=== PATIENT | female | born 1955 | race Hispanic/Latino ===

== ENCOUNTER 2020-05-26 15:06 | Emergency (ER) | payer MEDICARE ==
--- NOTE | 2020-05-26 17:47 | Event Note ---
ED Screening Note Date of service: 05/26/20 Time: 17:46 ED Screening Note: 65-year-old female presents to the emergency room for shortness of breath. Patient was sent from [facility] for low blood pressure. Per EMS patient was satting at 88% on room air and was placed on supplemental oxygen at 3 L. This initial assessment/diagnostic orders/clinical plan/treatment(s) is/are subject to change based on patients health status, clinical progression and re- assessment by fellow clinical providers in the ED. Further treatment and workup at subsequent clinical providers discretion. Patient/guardian urged not to elope from the ED as their condition may be serious if not clinically assessed and managed. Initial orders include:
--- NOTE | 2020-05-26 18:29 | XRay Report ---
CHEST 2 VIEWS INDICATION: sob. COMPARISON: 12/08/2019 FINDINGS: Support devices: None. Heart: Within normal limits. Lungs: Chronic pulmonary changes are present. Lung volume is increased Pleura: No significant pleural effusion. No pneumothorax. Additional findings: None. IMPRESSION: 1. No acute findings. COPD Signer Name: Elie Diana MD Signed: 05/26/2020 6:25 PM Workstation Name: [id number]
[2020-05-26] MEDS ORDERED: LORazepam 1 MG TAB PO ONE (19:09)
[2020-05-26] MEDS ORDERED: ALBUTEROL 2.5 MG/3 ML NEBU IH ONE (20:37)
[2020-05-26] MEDS ORDERED: predniSONE 20 MG TAB PO ONE (20:42)
--- NOTE | 2020-05-26 20:48 | Emergency Department Report ---
ED Shortness of Breath HPI - General Chief Complaint: Dyspnea/Respdistress Stated Complaint: SCHIZO EFFECTIVE/DEHYDRATION Source: EMS Mode of arrival: Stretcher Limitations: No Limitations - History of Present Illness Initial Comments: 65-year-old female presents to the emergency room for shortness of breath and anxiety. It was reported by EMS that patient was satting at 88% on room air. Patient has a history of COPD and mental health issues. Patient is currently residing at [facility]. Patient denies any fever chills no nausea no vomiting. Patient reports that she is on oxygen at home. MD Complaint: shortness of breath, anxiety -: This afternoon Severity: moderate Consistency: constant Improves With: oxygen Worsens With: movement Known History Of: COPD Treatments Prior to Arrival: oxygen - Related Data Home Medications Medication Instructions Recorded Confirmed Last Taken Benztropine Mesylate 0.5 mg PO BID 12/09/19 12/09/19 Unknown Ipratropium (Nf) [Atrovent HFA 1 puff 12/09/19 Unknown 17MCG/PUFF] LORazepam [Lorazepam] 1 mg PO BID 12/09/19 12/09/19 Unknown [place] Carbonate [Eskalith] 300 mg PO QHS 12/09/19 12/09/19 Unknown Primidone [Mysoline] 50 mg PO QDAY 12/09/19 12/09/19 Unknown Quetiapine Fumarate [SEROquel] 300 mg PO BID 12/09/19 12/09/19 Unknown Trazodone HCl 100 mg PO QHS 12/09/19 12/09/19 Unknown Valacyclovir HCl [Valacyclovir] 500 mg QAM 12/09/19 12/09/19 Unknown donepeziL [Aricept] 10 mg QAM 12/09/19 12/09/19 Unknown Previous Rx's Medication Instructions Recorded Last Taken Type Albuterol Sulfate [Proventil Hfa] 6.7 gm IH TID PRN #1 hfa.aer.ad 05/26/20 Unknown Rx Prednisone [predniSONE 5 mg (6-Day 5 mg PO .TAPER #1 tab.ds.pk 05/26/20 Unknown Rx Pack, 21 Tabs)] Allergies Allergy/AdvReac Type Severity Reaction Status Date / Time Penicillins Allergy Vomiting Verified 04/17/14 18:03 Sulfa (Sulfonamide Allergy Unknown Verified 04/17/14 18:03 Antibiotics) ED Review of Systems ROS: Stated complaint: SCHIZO EFFECTIVE/DEHYDRATION Other details as noted in HPI Comment: All other systems reviewed and negative ED Past Medical Hx - Past Medical History Hx Arthritis: Yes (Osteopenia) Hx Psychiatric Treatment: Yes (Bipolar, EPS, Anxiety, Hx addiction depression) Hx COPD: Yes Additional medical history: Alzhimer's. Von willmer's - Surgical History Additional Surgical History: partial gastrectomy (due to bleeding ulcer) - Social History Smoking Status: Unknown if ever smoked - Medications Home Medications: Home Medications Medication Instructions Recorded Confirmed Last Taken Type Benztropine Mesylate 0.5 mg PO BID 12/09/19 12/09/19 Unknown History Ipratropium (Nf) [Atrovent HFA 1 puff 12/09/19 Unknown History 17MCG/PUFF] LORazepam [Lorazepam] 1 mg PO BID 12/09/19 12/09/19 Unknown History [place] Carbonate [Eskalith] 300 mg PO QHS 12/09/19 12/09/19 Unknown History Primidone [Mysoline] 50 mg PO QDAY 12/09/19 12/09/19 Unknown History Quetiapine Fumarate [SEROquel] 300 mg PO BID 12/09/19 12/09/19 Unknown History Trazodone HCl 100 mg PO QHS 12/09/19 12/09/19 Unknown History Valacyclovir HCl [Valacyclovir] 500 mg QAM 12/09/19 12/09/19 Unknown History donepeziL [Aricept] 10 mg QAM 12/09/19 12/09/19 Unknown History Albuterol Sulfate [Proventil Hfa] 6.7 gm IH TID PRN #1 hfa.aer.ad 05/26/20 Unkn own Rx Prednisone [predniSONE 5 mg (6-Day 5 mg PO .TAPER #1 tab.ds.pk 05/26/20 Unknown Rx Pack, 21 Tabs)] ED Physical Exam - General Limitations: No Limitations General appearance: alert, in no apparent distress - Head Head exam: Present: atraumatic, normocephalic - Eye Eye exam: Present: normal appearance - ENT ENT exam: Present: mucous membranes moist - Neck Neck exam: Present: full ROM - Respiratory Respiratory exam: Present: accessory muscle use, prolonged expiratory - Cardiovascular Cardiovascular Exam: Present: regular rate - GI/Abdominal GI/Abdominal exam: Present: soft, normal bowel sounds - Back Exam Back exam: Present: normal inspection, full ROM - Neurological Exam Neurological exam: Present: alert, oriented X3, normal gait - Psychiatric Psychiatric exam: Present: anxious - Skin Skin exam: Present: warm, dry, intact, normal color. Absent: rash ED Course Vital Signs 05/26/20 15:57 Temperature 98.0 F Pulse Rate 75 Respiratory 18 Rate Blood Pressure 117/55 O2 Sat by Pulse 97 Oximetry ED Medical Decision Making - Radiology Data Radiology results: report reviewed [facility] [address] [place] [address] XRay Report Signed Patient: LADONNA CRAMER MR#: [id number] 13 : 1955 Acct:[id number] Age/Sex: 65 / F ADM Date: 05/26/20 Loc: ED Attending Dr: Ordering Physician: MAGGIE TRENT Date of Service: 05/26/20 Procedure(s): XR chest routine 2V Accession Number(s): [id number] cc: MAGGIE TRENT Fluoro Time In Minutes: CHEST 2 VIEWS INDICATION: sob. COMPARISON: 12/08/2019 FINDINGS: Support devices: None. Heart: Within normal limits. Lungs: Chronic pulmonary changes are present. Lung volume is increased Pleura: No significant pleural effusion. No pneumothorax. Additional findings: None. IMPRESSION: 1. No acute findings. COPD Signer Name: Elie Diana MD Signed: 05/26/2020 6:25 PM Workstation Name: [id number] Transcribed By: WG Dictated By: Elie Diana MD Electronically Authenticated By: Elie Diana MD Signed Date/Time: 05/26/201824 DD/ 23 TD/TT: - Medical Decision Making 65-year-old female presents to the emergency room for shortness of breath and anxiety. It was reported by EMS that patient was satting at 88% on room air. Patient has a history of COPD and mental health issues. Patient is currently residing at [facility]. Patient denies any fever chills no nausea no vomiting. Patient reports that she is on oxygen at home. Chest x-ray is negative for any acute findings. Patient's been placed on oxygen. Patient will be given albuterol treatment and prednisone 20 mg p.o. Critical care attestation.: If time is entered above; I have spent that time in minutes in the direct care of this critically ill patient, excluding procedure time. ED Disposition Clinical Impression: COPD exacerbation Disposition: - TO HOME OR SELFCARE Is pt being admited?: No Does the pt Need Aspirin: No Condition: Stable Instructions: Chronic Obstructive Pulmonary Disease (ED), Chronic Obstructive Pulmonary Disease Additional Instructions: Complete prednisone as prescribed. Use albuterol inhaler as needed. Follow-up with your primary care provider. Continue with your supplemental oxygen. Prescriptions: Prednisone [predniSONE 5 mg (6-Day Pack, 21 Tabs)] 5 mg PO .TAPER #1 tab.ds.pk Albuterol Sulfate [Proventil Hfa] 6.7 gm IH TID PRN #1 hfa.aer.ad PRN Reason: Shortness Of Breath Referrals: SONG MANUEL MD [Primary Care Provider] - 3-5 Days
[2020-05-26] MEDS ORDERED: predniSONE 20 MG TAB PO NR (21:00)
[2020-05-26 21:09] VITALS: BP 110/60
== END 2020-05-26 16:00 | disposition home or self-care (01) ==
LOC: ED 15:06
DX: J44.1 Chronic obstructive pulmonary disease with (acute) exacerbation (principal); F41.9 Anxiety disorder, unspecified; F31.9 Bipolar disorder, unspecified; Z79.899 Other long term (current) drug therapy; Z88.0 Allergy status to penicillin; Z88.2 Allergy status to sulfonamides; Z98.890 Other specified postprocedural states
CPT/HCPCS: 71046; 94640; 99284; J7512

== ENCOUNTER 2020-05-28 13:35 | Emergency (ER) | payer MEDICARE ==
[2020-05-28] MEDS ORDERED: LORazepam 2 MG/ML VIAL ONE (14:30)
[2020-05-28] MEDS ORDERED: LORazepam 2 MG/ML VIAL IM ONE ×2 (14:39→23:04)
[2020-05-28] MEDS ORDERED: ACETAMINOPHEN 325 MG TAB PO ONE (16:43)
[2020-05-28] MEDS ORDERED: SODIUM CHLORIDE 0.9% 1000 ML 1,000 ML IV ONE (16:43)
[2020-05-28] MEDS ORDERED: ONDANSETRON 4 MG/2 ML INJ IV ONE (16:44)
[2020-05-28] MEDS ORDERED: IPRATROPIUM/ALBUTEROL SULFATE 3 ML AMPUL.NEB IH ONE (16:45)
[2020-05-28] MEDS ORDERED: dexAMETHasone 20 MG/5 ML VIAL IV ONE (16:45)
--- NOTE | 2020-05-28 16:54 | Emergency Department Report ---
<LUCASELLI - Last Filed: 05/29/20 06:28> ED Shortness of Breath HPI - General Chief Complaint: Dyspnea/Respdistress Stated Complaint: COVID-19/ARE Time Seen by Provider: 05/28/20 16:25 - Related Data Home Medications Medication Instructions Recorded Confirmed Last Taken Benztropine Mesylate 0.5 mg PO BID 12/09/19 12/09/19 Unknown Ipratropium (Nf) [Atrovent HFA 1 puff 12/09/19 Unknown 17MCG/PUFF] LORazepam [Lorazepam] 1 mg PO BID 12/09/19 12/09/19 Unknown [place] Carbonate [Eskalith] 300 mg PO QHS 12/09/19 12/09/19 Unknown Primidone [Mysoline] 50 mg PO QDAY 12/09/19 12/09/19 Unknown Quetiapine Fumarate [SEROquel] 300 mg PO BID 12/09/19 12/09/19 Unknown Trazodone HCl 100 mg PO QHS 12/09/19 12/09/19 Unknown Valacyclovir HCl [Valacyclovir] 500 mg QAM 12/09/19 12/09/19 Unknown donepeziL [Aricept] 10 mg QAM 12/09/19 12/09/19 Unknown Previous Rx's Medication Instructions Recorded Last Taken Type Albuterol Sulfate [Proventil Hfa] 6.7 gm IH TID PRN #1 hfa.aer.ad 05/26/20 Unknown Rx Prednisone [predniSONE 5 mg (6-Day 5 mg PO .TAPER #1 tab.ds.pk 05/26/20 Unknown Rx Pack, 21 Tabs)] Allergies Allergy/AdvReac Type Severity Reaction Status Date / Time Penicillins Allergy Vomiting Verified 04/17/14 18:03 Sulfa (Sulfonamide Allergy Unknown Verified 04/17/14 18:03 Antibiotics) ED Past Medical Hx - Medications Home Medications: Home Medications Medication Instructions Recorded Confirmed Last Taken Type Benztropine Mesylate 0.5 mg PO BID 12/09/19 12/09/19 Unknown History Ipratropium (Nf) [Atrovent HFA 1 puff 12/09/19 Unknown History 17MCG/PUFF] LORazepam [Lorazepam] 1 mg PO BID 12/09/19 12/09/19 Unknown History [place] Carbonate [Eskalith] 300 mg PO QHS 12/09/19 12/09/19 Unknown History Primidone [Mysoline] 50 mg PO QDAY 12/09/19 12/09/19 Unknown History Quetiapine Fumarate [SEROquel] 300 mg PO BID 12/09/19 12/09/19 Unknown History Trazodone HCl 100 mg PO QHS 12/09/19 12/09/19 Unknown History Valacyclovir HCl [Valacyclovir] 500 mg QAM 12/09/19 12/09/19 Unknown History donepeziL [Aricept] 10 mg QAM 12/09/19 12/09/19 Unknown History Albuterol Sulfate [Proventil Hfa] 6.7 gm IH TID PRN #1 hfa.aer.ad 05/26/20 Unknown Rx Prednisone [predniSONE 5 mg (6-Day 5 mg PO .TAPER #1 tab.ds.pk 05/26/20 Unknown Rx Pack, 21 Tabs)] ED Medical Decision Making - Lab Data Result diagrams: 05/28/20 16:55 05/28/20 16:55 - Medical Decision Making I have assumed care of patient. Patient has been agitated for 16 hours straight. She has required several doses of medication for chemical sedation. CT chest abdomen pelvis were ordered by my colleague. Patient has pulled out several IVs. Due to restlessness and agitation the CT studies were not able to be performed. Patient does not have any current physical complaints at this time. I did observe patient during my previous shift. She complained of shortness of breath. She is now was concerned about "people coming to get me". D-dimer is elevated above lab level 348. However with age adjustment this D-dimer level reveals that the likelihood of VTE is low. I do not feel the risk of moderate sedation is justified to pursue these studies. Patient will be transferred back to [facility] where she will get the care that she needs for acute agitation and psychosis. Just recently, she has removed soft wrist restraints. She attempted to elope from the emergency department. After reviewing vital signs, labs obtained. Patient does not have an acute emergent condition which needs further investigation. She is not in any respiratory distress. She does not have any physical complaints at this time. ED Disposition Clinical Impression: COPD exacerbation, Agitation, Psychosis, COVID-19 Disposition: DC/TX-70 ANOTHER TYPE [facility]TH[facility]ARE Is pt being admited?: No Does the pt Need Aspirin: No Condition: Stable Instructions: Chronic Obstructive Pulmonary Disease (ED) Referrals: PRIMARY CARE, [Primary Care Provider] - 3-5 Days <CHRIS GARCIA - Last Filed: 05/29/20 21:29> ED Shortness of Breath HPI - General Source: patient, EMS Mode of arrival: Stretcher Limitations: No Limitations - History of Present Illness Initial Comments: 65-year-old female with a past medical history of COPD, anxiety, Alzheimer's dementia, peptic ulcer disease, history of depression, addiction, and schizoaffective disorder. presents to the hospital from [facility] for shortness of breath, anxiety, and diarrhea x4 days. Patient overall is a poor historian and is very talkative, anxious, and constantly yelling for assistance despite nurse intervention. It is listed on her May 27 mental status exam that she is oriented, euphoric, agitated, pacing, hyperbaric verbal, paranoid with loud and pressured speech. I suspect that patient is currently in a psychiatric facility for the same reasons. There is not a sign 1013 on the chart. Patient states she has chronic COPD and does not necessarily endorse acute worsening shortness of breath. She denies home oxygen use. She complains mostly of generalized abdominal pain with diarrhea x4 days (nonbloody), nausea, and decreased appetite. Patient had a positive rapid Covid test performed yesterday at the psychiatric facility. Patient received Ativan 1 mg IM prior to my evaluation and remains persistently agitated ED Review of Systems ROS: Stated complaint: COVID-19/RAE Other details as noted in HPI Comment: All other systems reviewed and negative ED Past Medical Hx - Past Medical History Hx Arthritis: Yes (Osteopenia) Hx Psychiatric Treatment: Yes (Bipolar, EPS, Anxiety, Hx addiction depression) Hx COPD: Yes Additional medical history: Alzhimer's. Von willmer's - Surgical History Additional Surgical History: partial gastrectomy (due to bleeding ulcer), hysterectomy, - Social History Smoking Status: Unknown if ever smoked ED Physical Exam - General Limitations: No Limitations - Other Other exam information: General: No acute distress Head: Atraumatic Eyes: normal appearance ENT: Hard of hearing Neck: Normal appearance, no midline tenderness Chest: Clear to auscultation bilaterally, no tachypnea accessory muscle use, mild diminished breath sounds bilateral CV: Regular rate and rhythm Abdomen: Multiple abdominal surgical scars from previous surgeries. Generalized tenderness without rebound or guarding. Normal bowel Back: Normal inspection Extremity: Normal inspection, full range of motion Neuro: Alert oriented x3, no facial asymmetry, speech clear, no gross deficit, Psych: Agitated Skin: No rash ED Course Vital Signs 05/28/20 05/28/20 05/28/20 16:45 17:05 17:10 Temperature Pulse Rate 75 88 88 Pulse Rate [ Bilateral] Respiratory 19 18 Rate Respiratory Rate [Bilateral ] Blood Pressure 125/62 122/78 Blood Pressure [Left] O2 Sat by Pulse 99 98 Oximetry 05/28/20 05/28/20 05/28/20 17:22 17:31 17:45 Temperature Pulse Rate 76 74 Pulse Rate [ 96 H Bilateral] Respiratory 18 24 23 Rate Respiratory 16 Rate [Bilateral ] Blood Pressure 133/76 133/76 Blood Pressure [Left] O2 Sat by Pulse 100 99 Oximetry 05/28/20 05/28/20 05/28/20 18:01 18:15 18:22 Temperature Pulse Rate 77 83 Pulse Rate [ Bilateral] Respiratory 18 21 21 Rate Respiratory Rate [Bilateral ] Blood Pressure 133/76 133/36 Blood Pressure [Left] O2 Sat by Pulse 92 95 Oximetry 05/29/20 06:18 Temperature 98.0 F Pulse Rate 81 Pulse Rate [ Bilateral] Respiratory 20 Rate Respiratory Rate [Bilateral ] Blood Pressure Blood Pressure 121/63 [Left] O2 Sat by Pulse 95 Oximetry ED Medical Decision Making - Lab Data Result diagrams: 05/28/20 16:55 05/28/20 16:55 Critical care attestation.: If time is entered above; I have spent that time in minutes in the direct care of this critically ill patient, excluding procedure time.
[2020-05-28] MEDS ORDERED: ZIPRASIDONE MESYLATE 20 MG VIAL IM ONE ×2 (17:05→18:52)
[2020-05-28] MEDS ORDERED: diphenhydrAMINE 50 MG/ML VIAL ONE (17:10)
[2020-05-28] MEDS ORDERED: WATER FOR INJ Sterile (PF) 10 ML ONE (17:16)
[2020-05-28 17:22] LABS: Basophils % (Auto) 0.5 % (0.0-1.8); Hematocrit 27.8 % (30.3-42.9); Lymphocytes # (Auto) 0.7 K/mm3 (1.2-5.4); Lymphocytes % (Auto) 16.8 % (13.4-35.0); Mean Corpuscular HGB Conc 32 % (30-34); Mean Corpuscular Volume 72 fl (79-97); Monocytes # (Auto) 0.6 K/mm3 (0.0-0.8); Monocytes % (Auto) 13.9 % (0.0-7.3); Platelet Count 183 K/mm3 (140-440); Red Blood Count 3.88 M/mm3 (3.65-5.03); Red Cell Distribution Width 19.7 % (13.2-15.2)
--- NOTE | 2020-05-28 17:32 | XRay Report ---
CHEST 1 VIEW 5:16 PM INDICATION / CLINICAL INFORMATION: Shortness of breath. COVID positive. COMPARISON: 05/26/20. FINDINGS: SUPPORT DEVICES: None. HEART / MEDIASTINUM: The heart size and pulmonary vasculature are normal. LUNGS / PLEURA: The lungs are hyperinflated. Slightly increased interstitial lung markings in the mid to lower lung zones are reticular and chronic in appearance. No new abnormality. No pneumothorax. ADDITIONAL FINDINGS: No significant additional findings. IMPRESSION: COPD. No acute abnormality or significant change. Signer Name: Yoni Da Silva MD Signed: 05/28/2020 5:27 PM Workstation Name: [id number]
[2020-05-28 17:36] LABS: C-Reactive Protein 1.6 mg/dL (0.00-1.30)
[2020-05-28 17:37] LABS: Alanine Aminotransferase 19 units/L (7-56); BUN/Creatinine Ratio 12; Blood Urea Nitrogen 6 mg/dL (7-17); Calcium 8.5 mg/dL (8.4-10.2); Hemolysis Index 2
[2020-05-28] MEDS ORDERED: diphenhydrAMINE 50 MG/ML VIAL IV ONE (18:52)
[2020-05-28] MEDS ORDERED: LORazepam 2 MG/ML VIAL IV ONE ×2 (20:31→23:01)
[2020-05-28] MEDS ORDERED: HALOPERIDOL LACTATE 5 MG/1 ML INJ IM ONE (23:03)
[2020-05-29] MEDS ORDERED: HALOPERIDOL LACTATE 5 MG/1 ML INJ IM ONE ×3 (01:07→06:55)
[2020-05-29] MEDS ORDERED: LORazepam 2 MG/ML VIAL IM ONE ×2 (01:08→06:30)
[2020-05-29] MEDS ORDERED: KETAMINE 500 MG/5 ML VIAL MDV IM ONE (02:05)
[2020-05-29] MEDS ORDERED: KETAMINE 500 MG/5 ML VIAL MDV ONE (02:08)
[2020-05-29 06:19] VITALS: BP 121/63
[2020-05-29] MEDS ORDERED: diphenhydrAMINE 50 MG/ML VIAL IM ONE (06:30)
== END 2020-05-29 09:09 | disposition other institution (70) ==
LOC: ED 13:35
DX: U07.1 COVID-19 (principal); J44.1 Chronic obstructive pulmonary disease with (acute) exacerbation; R45.1 Restlessness and agitation; F29 Unspecified psychosis not due to a substance or known physiological condition; M19.91 Primary osteoarthritis, unspecified site; F41.9 Anxiety disorder, unspecified; Z90.710 Acquired absence of both cervix and uterus; Z98.890 Other specified postprocedural states; Z88.0 Allergy status to penicillin; Z88.2 Allergy status to sulfonamides
CPT/HCPCS: 36415; 71045; 80053; 82140; 82728; 82805; 82947; 83615; 84145; 85025; 85379; 86140; 87040; 94640; 96361; 96372; 96374; 96375; 99285; J1100; J1200; J1630; J2060; J2405; J3486; J7030; 94644

== ENCOUNTER 2020-06-23 01:55 | Emergency (ER) | payer MEDICARE ==
[2020-06-23 02:59] VITALS: BP 122/70
--- NOTE | 2020-06-23 03:27 | XRay Report ---
RIGHT ELBOW 3 VIEWS INDICATION / CLINICAL INFORMATION: pain, swelling bruising COMPARISON: None available. FINDINGS: BONES / JOINT(S): There is a fracture of the proximal radial head. No other fractures are seen. No si gnificant arthritis. SOFT TISSUES: The anterior fat pad is displaced. ADDITIONAL FINDINGS: None. Signer Name: Juan J Benites MD Signed: 06/23/2020 3:23 AM Workstation Name: [id number]
--- NOTE | 2020-06-23 03:32 | Emergency Department Report ---
Upper Extremity - HPI Chief Complaint: Fall Stated Complaint: RT ELBOW INJURY Time Seen by Provider: 06/23/20 02:17 Upper Extremity: Right Elbow Occurred When: 2 Days Mechanism: Fall Severity: mild, moderate Symptoms: Yes Pain with Movement, Yes Limited Range of Movement, Yes Swelling, Yes Bruising/Ecchymosis, No Laceration or Abrasion Other History: Six 5-year-old female resident the [facility] this emergency department status post slip and fall landing on her right elbow and was found to have a radial head fracture and was just special to the emergency department for definitive treatment. No other injuries reported reports no loss of consciousness no head trauma reports no nu mbness tingling fever chills sweats ED Review of Systems ROS: Stated complaint: RT ELBOW INJURY Other details as noted in HPI Comment: All other systems reviewed and negative ED Past Medical Hx - Past Medical History Previous Medical History?: Yes Hx Arthritis: Yes (Osteopenia) Hx Psychiatric Treatment: Yes (Bipolar, EPS, Anxiety, Hx addiction depression) Hx COPD: Yes Additional medical history: Alzhimer's. Von willmer's - Surgical History Past Surgical History?: Yes Additional Surgical History: partial gastrectomy (due to bleeding ulcer), hysterectomy, - Social History Smoking Status: Never Smoker Substance Use Type: None - Medications Home Medications: Home Medications Medication Instructions Recorded Confirmed Last Taken Type Benztropine Mesylate 0.5 mg PO BID 12/09/19 12/09/19 Unknown History Ipratropium (Nf) [Atrovent HFA 1 puff 12/09/19 Unknown History 17MCG/PUFF] LORazepam [Lorazepam] 1 mg PO BID 12/09/19 12/09/19 Unknown History [place] Carbonate [Eskalith] 300 mg PO QHS 12/09/19 12/09/19 Unknown History Primidone [Mysoline] 50 mg PO QDAY 12/09/19 12/09/19 Unknown History Quetiapine Fumarate [SEROquel] 300 mg PO BID 12/09/19 12/09/19 Unknown History Trazodone HCl 100 mg PO QHS 12/09/19 12/09/19 Unknown History Valacyclovir HCl [Valacyclovir] 500 mg QAM 12/09/19 12/09/19 Unknown History donepeziL [Aricept] 10 mg QAM 12/09/19 12/09/19 Unknown History Albuterol Sulfate [Proventil Hfa] 6.7 gm IH TID PRN #1 hfa.aer.ad 05/26/20 Unknown Rx Prednisone [predniSONE 5 mg (6-Day 5 mg PO .TAPER #1 tab.ds.pk 05/26/20 Unknown Rx Pack, 21 Tabs)] Ketorolac [Toradol] 10 mg PO Q8H PRN #10 tablet 06/23/20 Unknown Rx Upper Extremity Exam - Exam General: Vital signs noted. No distress. Alert and acting appropriately. Head and Torso: No HEENT Abnormality, No Neck Tenderness, No Chest/Lungs Abnormality, No Abdominal Tenderness, No Back Tenderness Shoulder Exam: Yes Normal Range of Motion in Shoulder, No Shoulder Tenderness, No Clavicle Tenderness, No Shoulder Deformity, No AC Joint Tenderness Arm Exam: No Arm/Humerus Tenderness, No Arm Deformity Elbow: Yes Elbow Tenderness (Swelling and ecchymosis noted. Tenderness with palpation along the radial head region. Pulses 2+ cap refills are brisk normal supination and pronation and security operations engineer strength is 4 5), Yes Normal Range of Motion in Elbow, No Elbow Deformity Forearm: No Forearm Tenderness, No Forearm Deformity, No Pain with Pronation, No Pain with Supination Wrist: Yes Normal ROM in Wrist, No Wrist Tenderness, No Wrist Deformity, No Snuffbox Tenderness, No Pain with Axial Thumb Compression Hand: Yes Normal ROM in Digit(s), No Hand Tenderness, No Hand Deformity, No Digit Tenderness, No Digit(s) Deformity, No Tendon Dysfunction CMS Exam: No Broken Skin, No Normal Distal Pulses, No Normal Capillary Refill, No Normal Distal Sensation ED Course Vital Signs 06/23/20 02:13 Temperature 98.0 F Pulse Rate 76 Respiratory 18 Rate Blood Pressure 122/70 O2 Sat by Pulse 97 Oximetry - Orthopedic Splinting/Casting Injury #1 Side: right Upper Extremity Injury Location: elbow Upper Extremity Immobilizer: sling/shoulder immobilize, posterior splint ED Medical Decision Making - Radiology Data Radiology results: report reviewed Fracture to the radial head with no dislocation or significant deformity - Medical Decision Making Six 5-year-old female status post fall at [facility] resulting in pain to the elbow fracture was noted. She was splinted and in a sling was placed in the emergency department. At the recommend she follow-up with orthopedic as a cast may be necessary for definitive treatment. Critical care attestation.: If time is entered above; I have spent that time in minutes in the direct care of this critically ill patient, excluding procedure time. ED Disposition Clinical Impression: Radial head fracture, closed Disposition: DC-01 TO HOME OR SELFCARE Is pt being admited?: No Does the pt Need Aspirin: No Condition: Stable Instructions: Radial Head Fracture, Cast or Splint Care, Adult, [id number] Prescriptions: Ketorolac [Toradol] 10 mg PO Q8H PRN #10 tablet PRN Reason: Pain Referrals: PRIMARY CARE, [Primary Care Provider] - 3-5 Days KARLENE MARIE MD [Staff Physician] - 3-5 Days
== END 2020-06-23 03:30 | disposition home or self-care (01) ==
LOC: ED 01:55
DX: S52.121A Displaced fracture of head of right radius, initial encounter for closed fracture (principal); M19.90 Unspecified osteoarthritis, unspecified site; F31.9 Bipolar disorder, unspecified; F41.9 Anxiety disorder, unspecified; J44.9 Chronic obstructive pulmonary disease, unspecified; Z90.710 Acquired absence of both cervix and uterus; Z79.899 Other long term (current) drug therapy; Z88.2 Allergy status to sulfonamides; W01.10XA Fall on same level from slipping, tripping and stumbling with subsequent striking against unspecified object, initial encounter; Y93.89 Activity, other specified; Y92.89 Other specified places as the place of occurrence of the external cause; Y99.8 Other external cause status

== ENCOUNTER 2020-09-24 18:26 | Inpatient (IN) | payer MEDICARE ==
[2020-09-24] MEDS ORDERED: SODIUM CHLORIDE 0.9% 1000 ML IV SOLN IV ONE (21:06)
[2020-09-24] MEDS ORDERED: AZITHROMYCIN/NS 500 MG/250 ML 500 MG/250 ML BAG IV ONE (21:10)
[2020-09-24] MEDS ORDERED: SODIUM CHLORIDE 0.9% 1000 ML 1,000 ML IV ONE (21:10)
[2020-09-24] MEDS ORDERED: ZIPRASIDONE MESYLATE 20 MG VIAL IM ONE ×2 (21:44→22:09)
[2020-09-24] MEDS ORDERED: WATER FOR INJ Sterile (PF) 10 ML ONE (21:48)
--- NOTE | 2020-09-24 22:23 | XRay Report ---
CHEST 1 VIEW 09/24/2020 9:25 PM INDICATION / CLINICAL INFORMATION: Hypoxia and low O2 sats. Shortness of breath. COMPARISON: 05/28/20. FINDINGS: SUPPORT DEVICES: None. HEART / MEDIASTINUM: The heart size and pulmonary vasculature are normal. LUNGS / PLEURA: The lungs are mildly hyperinflated with minimal chronic interstitial lung disease, un changed. No new pulmonary or pleural abnormality. No pneumothorax. ADDITIONAL FINDINGS: No significant additional findings. IMPRESSION: COPD without acute abnormality or significant change. Signer Name: Yoni Da Silva MD Signed: 09/24/2020 10:19 PM Workstation Name: [id number]
[2020-09-24 22:39] LABS: Hematocrit 36.9 % (30.3-42.9); Hemoglobin 11.4 gm/dl (10.1-14.3); Mean Corpuscular HGB Conc 31 % (30-34); Mean Corpuscular Volume 79 fl (79-97); Platelet Count 108 K/mm3 (140-440); Red Blood Count 4.66 M/mm3 (3.65-5.03)
[2020-09-24 22:42] LABS: Red Cell Distribution Width 23.3 % (13.2-15.2)
[2020-09-24 23:01] LABS: Alanine Aminotransferase 10 units/L (7-56); Albumin 4.2 g/dL (3.9-5); Blood Urea Nitrogen 12 mg/dL (7-17); Calcium 9.1 mg/dL (8.4-10.2); Hemolysis Index 35
[2020-09-24 23:02] LABS: BUN/Creatinine Ratio 17
--- NOTE | 2020-09-24 23:54 | Emergency Department Report ---
ED Shortness of Breath HPI - General Chief Complaint: Dyspnea/Respdistress Stated Complaint: SHORTNESS OF BREATH Time Seen by Provider: 09/24/20 21:06 Source: patient, EMS Mode of arrival: Wheelchair Limitations: Physical Limitation, Other - History of Present Illness Initial Comments: Patient is a 65-year-old female with past medical history of bipolar disorder COPD who is presenting from [facility] with hypoxia. Patient's O2 sat had gotten down to 70s with exertion. Patient does not have oxygen at baseline. Patient had COVID-19 approximately 4 months ago and has recovered. There is been no mention of any cough congestion fevers or chills. Patient was placed on oxygen on arrival and her oxygen level has improved. - Related Data Home Medications Medication Instructions Recorded Confirmed Last Taken Benztropine Mesylate 0.5 mg PO BID 12/09/19 12/09/19 Unknown Ipratropium (Nf) [Atrovent HFA 1 puff 12/09/19 Unknown 17MCG/PUFF] LORazepam [Lorazepam] 1 mg PO BID 12/09/19 12/09/19 Unknown [place] Carbonate [Eskalith] 300 mg PO QHS 12/09/19 12/09/19 Unknown Primidone [Mysoline] 50 mg PO QDAY 12/09/19 12/09/19 Unknown Quetiapine Fumarate [SEROquel] 300 mg PO BID 12/09/19 12/09/19 Unknown Trazodone HCl 100 mg PO QHS 12/09/19 12/09/19 Unknown Valacyclovir HCl [Valacyclovir] 500 mg QAM 12/09/19 12/09/19 Unknown donepeziL [Aricept] 10 mg QAM 12/09/19 12/09/19 Unknown Previous Rx's Medication Instructions Recorded Last Taken Type Albuterol Sulfate [Proventil Hfa] 6.7 gm IH TID PRN #1 hfa.aer.ad 05/26/20 Unknown Rx Prednisone [predniSONE 5 mg (6-Day 5 mg PO .TAPER #1 tab.ds.pk 05/26/20 Unknown Rx Pack, 21 Tabs)] Ketorolac [Toradol] 10 mg PO Q8H PRN #10 tablet 06/23/20 Unknown Rx Allergies Allergy/AdvReac Type Severity Reaction Status Date / Time Penicillins Allergy Vomiting Verified 04/17/14 18:03 Sulfa (Sulfonamide Allergy Unknown Verified 04/17/14 18:03 Antibiotics) ED Review of Systems ROS: Stated complaint: SHORTNESS OF BREATH Other details as noted in HPI Comment: All other systems reviewed and negative ED Past Medical Hx - Past Medical History Previous Medical History?: Yes Hx Arthritis: Yes (Osteopenia) Hx Psychiatric Treatment: Yes (Bipolar, EPS, Anxiety, Hx addiction depression) Hx COPD: Yes Additional medical history: Alzhimer's. Von willmer's - Surgical History Past Surgical History?: Yes Additional Surgical History: partial gastrectomy (due to bleeding ulcer), hysterectomy, - Social History Smoking Status: Current Every Day Smoker Substance Use Type: None - Medications Home Medications: Home Medications Medication Instructions Recorded Confirmed Last Taken Type Benztropine Mesylate 0.5 mg PO BID 12/09/19 12/09/19 Unknown History Ipratropium (Nf) [Atrovent HFA 1 puff 12/09/19 Unknown History 17MCG/PUFF] LORazepam [Lorazepam] 1 mg PO BID 12/09/19 12/09/19 Unknown History [place] Carbonate [Eskalith] 300 mg PO QHS 12/09/19 12/09/19 Unknown History Primidone [Mysoline] 50 mg PO QDAY 12/09/19 12/09/19 Unknown History Quetiapine Fumarate [SEROquel] 300 mg PO BID 12/09/19 12/09/19 Unknown History Trazodone HCl 100 mg PO QHS 12/09/19 12/09/19 Unknown History Valacyclovir HCl [Valacyclovir] 500 mg QAM 12/09/19 12/09/19 Unknown History donepeziL [Aricept] 10 mg QAM 12/09/19 12/09/19 Unknown History Albuterol Sulfate [Proventil Hfa] 6.7 gm IH TID PRN #1 hfa.aer.ad 05/26/20 Unknown Rx Prednisone [predniSONE 5 mg (6-Day 5 mg PO .TAPER #1 tab.ds.pk 05/26/20 Unknown Rx Pack, 21 Tabs)] Ketorolac [Toradol] 10 mg PO Q8H PRN #10 tablet 06/23/20 Unknown Rx ED Physical Exam - General Limitations: Physical Limitation, Other General appearance: alert, in distress, other (yelling "someone help me" "nnone will help me" "momma" repeatedly) - Head Head exam: Present: atraumatic, normocephalic - Eye Eye exam: Present: normal appearance - ENT ENT exam: Present: normal orophraynx, mucous membranes moist - Neck Neck exam: Present: normal inspection - Respiratory Respiratory exam: Present: prolonged expiratory. Absent: normal lung sounds bilaterally, respiratory distress, wheezes, rales - Cardiovascular Cardiovascular Exam: Present: regular rate, normal rhythm, bradycardia. Absent: systolic murmur, diastolic murmur, rubs, gallop - GI/Abdominal GI/Abdominal exam: Present: soft, normal bowel sounds. Absent: distended, tenderness, guarding, rebound - Extremities Exam Extremities exam: Present: normal inspection - Back Exam Back exam: Present: normal inspection - Neurological Exam Neurological exam: Present: alert, oriented X3 - Psychiatric Psychiatric exam: Present: normal affect, normal mood - Skin Skin exam: Present: warm, dry, intact, normal color. Absent: rash ED Course Vital Signs 09/24/20 09/24/20 09/24/20 20:20 20:27 20:45 Temperature 98.8 F Pulse Rate 85 84 Respiratory 20 22 Rate Blood Pressure 130/66 O2 Sat by Pulse 96 94 100 Oximetry 09/24/20 09/24/20 09/24/20 20:47 20:48 20:49 Temperature Pulse Rate 81 80 Respiratory 21 19 Rate Blood Pressure 147/69 147/69 O2 Sat by Pulse 100 100 100 Oximetry 09/24/20 09/24/20 09/24/20 20:51 20:53 20:55 Temperature Pulse Rate 80 81 84 Respiratory 16 19 20 Rate Blood Pressure 147/69 147/69 147/69 O2 Sat by Pulse 100 100 100 Oximetry 09/24/20 09/24/20 09/24/20 20:56 20:57 21:03 Temperature Pulse Rate Respiratory 14 15 Rate Blood Pressure 147/69 147/69 147/69 O2 Sat by Pulse 100 100 87 Oximetry 09/24/20 09/24/20 09/24/20 21:05 21:06 21:07 Temperature Pulse Rate 85 83 Respiratory 13 14 Rate Blood Pressure 147/69 147/70 147/70 O2 Sat by Pulse 96 98 100 Oximetry ED Medical Decision Making - Lab Data Result diagrams: 09/24/20 22:24 09/24/20 22:24 Lab Results 09/24/20 09/24/20 09/24/20 Range/Units 22:24 22:24 22:24 WBC 5.7 (4.5-11.0) K/mm3 RBC 4.66 (3.65-5.03) M/mm3 Hgb 11.4 (10.1-14.3) gm/dl Hct 36.9 (30.3-42.9) % MCV 79 (79-97) fl MCH 24 L (28-32) pg MCHC 31 (30-34) % RDW 23.3 H (13.2-15.2) % Plt Count 108 L (140-440) K/mm3 [place] % (Auto) Lieutenant Colonel D-Dimer (0-234) ng/mlDDU Sodium 136 L (137-145) mmol/L Potassium 5.1 H (3.6-5.0) mmol/L Chloride 93.6 L (98-107) mmol/L Carbon Dioxide 35 H (22-30) mmol/L Anion Gap 13 mmol/L BUN 12 (7-17) mg/dL Creatinine 0.7 (0.6-1.2) mg/dL Estimated GFR > 60 ml/min BUN/Creatinine Ratio 17 % Glucose 100 (65-100) mg/dL Lactic Acid 1.00 (0.7-2.0) mmol/L Calcium 9.1 (8.4-10.2) mg/dL Total Bilirubin 0.30 (0.1-1.2) mg/dL AST 23 (5-40) units/L ALT 10 (7-56) units/L Alkaline Phosphatase 89 (35-129) units/L Total Protein 7.0 (6.3-8.2) g/dL Albumin 4.2 (3.9-5) g/dL Albumin/Globulin Ratio 1.5 % 09/24/20 Range/Units 22:24 WBC (4.5-11.0) K/mm3 RBC (3.65-5.03) M/mm3 Hgb (10.1-14.3) gm/dl Hct (30.3-42.9) % MCV (79-97) fl MCH (28-32) pg MCHC (30-34) % RDW (13.2-15.2) % Plt Count (140-440) K/mm3 [place] % (Auto) D-Dimer 302.78 H (0-234) ng/mlDDU Sodium (137-145) mmol/L Potassium (3.6-5.0) mmol/L Chloride (98-107) mmol/L Carbon Dioxide (22-30) mmol/L Anion Gap mmol/L BUN (7-17) mg/dL Creatinine (0.6-1.2) mg/dL Estimated GFR ml/min BUN/Creatinine Ratio % Glucose (65-100) mg/dL Lactic Acid (0.7-2.0) mmol/L Calcium (8.4-10.2) mg/dL Total Bilirubin (0.1-1.2) mg/dL AST (5-40) units/L ALT (7-56) units/L Alkaline Phosphatase (35-129) units/L Total Protein (6.3-8.2) g/dL Albumin (3.9-5) g/dL Albumin/Globulin Ratio % - Radiology Data [facility] [address] [place] [address] XRay Report Signed Patient: LADONNA CRAMER MR#: [id number] 13 : 1955 Acct:[id number] Age/Sex: 65 / F ADM Date: 09/24/20 Loc: ED Attending Dr: Ordering Physician: MARY ANNE ZAVALA MD Date of Service: 09/24/20 Procedure(s): XR chest 1V ap Accession Number(s): [id number] cc: MARY ANNE ZAVALA MD Fluoro Time In Minutes: CHEST 1 VIEW 09/24/2020 9:25 PM INDICATION / CLINICAL INFORMATION: Hypoxia and low O2 sats. Shortness of breath. COMPARISON: 05/28/20. FINDINGS: SUPPORT DEVICES: None. HEART / MEDIASTINUM: The heart size and pulmonary vasculature are normal. LUNGS / PLEURA: The lungs are mildly hyperinflated with minimal chronic int erstitial lung disease, unchanged. No new pulmonary or pleural abnormality. No pneumothorax. ADDITIONAL FINDINGS: No significant additional findings. IMPRESSION: COPD without acute abnormality or significant change. Signer Name: Yoni Da Silva MD Signed: 09/24/2020 10:19 PM Workstation Name: [id number] - Medical Decision Making Patient taken off of oxygen and was allowed to ambulate to the bathroom early on in her evaluation. Patient dropped into the 80s. Patient placed back on oxygen. Patient with COPD likely needing home oxygen at this point. Patient to be admitted to the hospitalist service Critical care attestation.: If time is entered above; I have spent that time in minutes in the direct care of this critically ill patient, excluding procedure time. ED Disposition Clinical Impression: COPD (chronic obstructive pulmonary disease), Hypoxia Disposition: OP ADMIT IP TO THIS HOSP Is pt being admited?: Yes Does the pt Need Aspirin: No Condition: Stable Instructions: Chronic Obstructive Pulmonary Disease (ED) Time of Disposition: 23:55
[2020-09-25] MEDS ORDERED: SENNOSIDES 8.6 MG TAB PO PRN (00:06)
[2020-09-25] MEDS ORDERED: ONDANSETRON 4 MG/2 ML INJ IV PRN (00:06)
[2020-09-25] MEDS ORDERED: MAGNESIUM HYDROXIDE (MOM) ORAL LIQD UDC PO PRN (00:06)
[2020-09-25] MEDS ORDERED: ALUM-MAG HYDROXIDE-SIMETHICONE 200-200-20MG/5ML ORAL LIQD 30 ML PO PRN (00:06)
--- NOTE | 2020-09-25 00:18 | History and Physical Report ---
History of Present Illness Date of examination: 09/25/20 Date of admission: 09/25/20 Chief complaint: Shortness of breath with hypoxia requiring oxygen COPD History of present illness: Patient is a 65-year-old female with past medical history of bipolar disorder COPD who is presenting from [facility] with hypoxia. Patient's O2 sat had gotten down to 70s with exertion. Patient does not have oxygen at baseline. Patient had COVID-19 approximately 4 months ago and has recovered. There is been no mention of any cough congestion fevers or chills. Patient was placed on oxygen on arrival and her oxygen level has improved. ED work-up WBC 5.7, hemoglobin 11.4, platelets 106, D-dimer 302, sodium 136, potassium 5.1, creatinine 0.7 calcium 9.1 lactic acid 1.0 serum glucose 200 chest x-ray done showed COPD without acute abnormality or significant change. Patient seen in ED at bedside. Patient is on oxygen at 2 L nasal cannula with O2 sats 98%. Patient is very agitated on four-point restraint for safety. As needed as needed Geodon ordered. Psych consulted for mental health evaluation and psych medication management. I reviewed labs, medication record, and vital signs. Plan to use Past History Past Medical History: COPD, other (Bipolar) Past Surgical History: Other (unable to get information-patient psychotic and agitated) Social history: no significant social history Family history: no significant family history Medications and Allergies Allergies Allergy/AdvReac Type Severity Reaction Status Date / Time Penicillins Allergy Vomiting Verified 04/17/14 18:03 Sulfa (Sulfonamide Allergy Unknown Verified 04/17/14 18:03 Antibiotics) Home Medications Medication Instructions Recorded Confirmed Last Taken Type Benztropine Mesylate 0.5 mg PO BID 12/09/19 12/09/19 Unknown History Ipratropium (Nf) [Atrovent HFA 1 puff 12/09/19 Unknown History 17MCG/PUFF] LORazepam [Lorazepam] 1 mg PO BID 12/09/19 12/09/19 Unknown History [place] Carbonate [Eskalith] 300 mg PO QHS 12/09/19 12/09/19 Unknown History Primidone [Mysoline] 50 mg PO QDAY 12/09/19 12/09/19 Unknown History Quetiapine Fumarate [SEROquel] 300 mg PO BID 12/09/19 12/09/19 Unknown History Trazodone HCl 100 mg PO QHS 12/09/19 12/09/19 Unknown History Valacyclovir HCl [Valacyclovir] 500 mg QAM 12/09/19 12/09/19 Unknown History donepeziL [Aricept] 10 mg QAM 12/09/19 12/09/19 Unknown History Albuterol Sulfate [Proventil Hfa] 6.7 gm IH TID PRN #1 hfa.aer.ad 05/26/20 Unknown Rx Prednisone [predniSONE 5 mg (6-Day 5 mg PO .TAPER #1 tab.ds.pk 05/26/20 Unknown Rx Pack, 21 Tabs)] Ketorolac [Toradol] 10 mg PO Q8H PRN #10 tablet 06/23/20 Unknown Rx Active Meds: Active Medications Acetaminophen (Acetaminophen 325 Mg Tab) 650 mg PO Q4H PRN PRN Reason: Pain MILD(1-3)/Fever >100.5/AUGUSTINE Al Hydrox/Mg Hydrox/Simethicone (Alum-Mag Hydroxide-Simethicone [phone]/5ml Oral Liqd 30 Ml) 30 ml PO Q4H PRN PRN Reason: Indigestion Magnesium Hydroxide (Magnesium Hydroxide (Mom) Oral Liqd Udc) 30 ml PO Q4H PRN PRN Reason: Constipation Ondansetron HCl (Ondansetron 4 Mg/2 Ml Inj) 4 mg IV Q8H PRN PRN Reason: Nausea And Vomiting Senna (Sennosides 8.6 Mg Tab) 8.6 mg PO Q12HR PRN PRN Reason: Insomnia Sodium Chloride (Sodium Chloride 0.9% 10 Ml Flush Syringe) 10 ml IV BID CARMELLA Sodium Chloride (Sodium Chloride 0.9% 10 Ml Flush Syringe) 10 ml IV PRN PRN PRN Reason: LINE FLUSH Review of Systems Ears, nose, mouth and throat: no epistaxis, no bleeding gums Breasts: no discharge Cardiovascular: shortness of breath, dyspnea on exertion Respiratory: shortness of breath, dyspnea on exertion Gastrointestinal: no melena, no hematochezia Genitourinary Female: no dyspareunia Menstruation: no premenarcheal Rectal: no itching, no hemorrhoids Musculoskeletal: no muscle weakness Integumentary: no growths, no bullae Neurological: no vertigo Psychiatric: anxiety, depression, anxiety attacks, difficulties concentrating, confusion Endocrine: no proptosis Hematologic/Lymphatic: no easy bruising, no easy bleeding, no lymphedema Allergic/Immunologic: no urticaria Exam - Constitutional Vitals: Temp Pulse Resp BP Pulse Ox 98.8 F 83 14 147/70 100 09/24/20 20:20 09/24/20 21:07 09/24/20 21:07 09/24/20 21:07 09/24/20 21:07 General appearance: Present: severe distress, other (agitation) - EENT Eyes: Present: PERRL ENT: hearing intact, clear oral mucosa - Neck Neck: Present: supple, normal ROM - Respiratory Respiratory effort: normal Respiratory: bilateral: CTA - Cardiovascular Heart Sounds: Present: S1 & S2. Absent: rub, click - Extremities Extremities: pulses symmetrical, No edema Peripheral Pulses: within normal limits - Abdominal General gastrointestinal: Present: soft, non-tender, non-distended, normal bowel sounds Female genitourinary: Present: normal - Integumentary Integumentary: Present: clear, warm, dry - Musculoskeletal Musculoskeletal: gait normal, strength equal bilaterally - Psychiatric Psychiatric: agitated - Neurologic Neurologic: CNII-XII intact, moves all extremities - Allied Health Allied health notes reviewed: nursing Results - Labs CBC & Chem 7: 09/24/20 22:24 09/24/20 22:24 Labs: Abnormal lab results 09/24/20 09/24/20 09/24/20 Range/Units 22:24 22:24 22:24 MCH 24 L (28-32) pg RDW 23.3 H (13.2-15.2) % Plt Count 108 L (140-440) K/mm3 D-Dimer 302.78 H (0-234) ng/mlDDU Sodium 136 L (137-145) mmol/L Potassium 5.1 H (3.6-5.0) mmol/L Chloride 93.6 L (98-107) mmol/L Carbon Dioxide 35 H (22-30) mmol/L Assessment and Plan - Patient Problems (1) COPD (chronic obstructive pulmonary disease) Current Visit: Yes Status: Acute Plan to address problem: Chest x-ray showed COPD with no acute finding. Continue oxygen supplement, ABG, and bronchodilators Pad Hand consulted (2) Acute respiratory failure with hypoxia Current Visit: No Status: Acute Plan to address problem: Status post Covid infection about 3 months to 4 months ago respiratory care, oxygen supplement and bronchodilators Chest x-ray negative for acute finding. Patient on oxygen at 2 L nasal cannula. Oxygen saturation 98% (3) Bipolar disorder Current Visit: Yes Status: Acute Plan to address problem: Agitation due to bipolar disorder Dave STUBBS PRN. Mental health department consulted for medication management and mental health evaluation. (4) Thrombocytopenia Current Visit: Yes Status: Acute Plan to address problem: monitor plt level (5) DVT prophylaxis Current Visit: No Status: Acute Plan to address problem: Subcutaneous Lovenox
[2020-09-25 00:39] LABS: Anisocytosis 2+; Hypochromasia 2+; Platelet Estimate Consistent w Auto; Total Cells Counted 100
[2020-09-25] MEDS ORDERED: HALOPERIDOL LACTATE 5 MG/1 ML INJ IM ONE (01:01)
[2020-09-25 04:58] LABS: C-Reactive Protein 0.1 mg/dL (0.00-1.30)
[2020-09-25] MEDS ORDERED: HALOPERIDOL LACTATE 5 MG/1 ML INJ ONE (05:27)
[2020-09-25] MEDS: QUEtiapine 200 MG TAB PO SCH ×3 (05:30→22:25)
[2020-09-25] MEDS ORDERED: WATER FOR INJ Sterile (PF) 10 ML ONE ×3 (06:48→14:35)
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
[2020-09-25] MEDS: ZIPRASIDONE MESYLATE 20 MG VIAL IM PRN ×4 (09:09→23:43)
--- NOTE | 2020-09-25 11:16 | Event Note ---
Date: 09/25/20 Patient seen and examined in no acute respiratory distress but acute psychosis is present. Remains on two-point restraints. Continue current management and psych input pending. Aspiration precautions and fall precautions. Continue restraints for safety.
[2020-09-25] MEDS: ENOXAPARIN 40 MG/0.4 ML INJ SUB-Q SCH (12:21)
[2020-09-25] MEDS: ACETAMINOPHEN 325 MG TAB PO PRN (12:22)
[2020-09-25] MEDS: ALBUTEROL 2.5 MG/3 ML NEBU IH SCH ×4 (15:49→20:01)
[2020-09-25] MEDS ORDERED: QUEtiapine 25 MG TAB PO SCH (22:00)
[2020-09-25] MEDS: WATER FOR INJ Sterile (PF) 10 ML IM PRN (23:49)
[2020-09-26] MEDS ORDERED: HALOPERIDOL LACTATE 5 MG/1 ML INJ IM ONE (01:30)
[2020-09-26] MEDS: ALBUTEROL 2.5 MG/3 ML NEBU IH SCH ×3 (01:56→14:13)
[2020-09-26] MEDS ORDERED: LORazepam 2 MG/ML VIAL IV ONE (06:40)
[2020-09-26 08:30] LABS: Basophils % (Auto) 0.4 % (0.0-1.8); Eosinophils % (Auto) 0.2 % (0.0-4.3); Hematocrit 35.6 % (30.3-42.9); Hemoglobin 11.3 gm/dl (10.1-14.3); Lymphocytes # (Auto) 0.7 K/mm3 (1.2-5.4); Lymphocytes % (Auto) 7.1 % (13.4-35.0); Mean Corpuscular HGB Conc 32 % (30-34); Mean Corpuscular Volume 78 fl (79-97); Monocytes # (Auto) 1.6 K/mm3 (0.0-0.8); Monocytes % (Auto) 15.5 % (0.0-7.3); Platelet Count 149 K/mm3 (140-440); Red Blood Count 4.54 M/mm3 (3.65-5.03)
[2020-09-26 08:31] LABS: Red Cell Distribution Width 23.1 % (13.2-15.2)
[2020-09-26 08:44] LABS: Blood Urea Nitrogen 12 mg/dL (7-17); Calcium 9.3 mg/dL (8.4-10.2); Hemolysis Index 47
[2020-09-26 08:47] LABS: BUN/Creatinine Ratio 17
[2020-09-26] MEDS: ENOXAPARIN 40 MG/0.4 ML INJ SUB-Q SCH ×2 (08:50→17:50)
[2020-09-26] MEDS: QUEtiapine 200 MG TAB PO SCH (08:50)
[2020-09-26] MEDS ORDERED: ZIPRASIDONE MESYLATE 20 MG VIAL IM NR (10:40)
--- NOTE | 2020-09-26 11:18 | Progress Note ---
Subjective - Reason for Consult Consult date: 09/26/20 Reason for consult: MHE Requesting physician: UMER PICKENS - Chief Complaint Chief complaint: Psych Progress Patient seen in room, screaming out loudly calling for nurses and staff asking for help. Patient says she is having a nervous breakdown and feels like she will be dying soon. Informed patient to clam down, patient appears restless in bed, throwing off clothes and unable to comprehend spoken words to her at this time. REVIEW OF SYSTEMS Constitutional: Negative for weight loss ENT: Negative for stridor Respiratory: Negative for cough or hemoptysis All other systems reviewed and are negative MENTAL STATUS EXAMINATION General Appearance and Behavior: Age appropriate, poor/fair/good hygiene, wearing appropriate clothes, lying in bed, good/poor eye contact, cooperative/uncooperative polite/irritable with questioning. Cooperation: Participating/engaged Psychomotor Behavior: Psychomotor agitation, Mood: nervous Affect and affective range: anxious Thought Process: Fluent/Logical Thought Content: Obsessions Speech: pressured Intellectual Functioning: Average Suicidal Ideation: Denies SI Homicidal Ideation: Denies HI Impulse Control: Impaired Insight and Judgment: Limited insight and judgment Memory: Normal Attention: Distractible, and Divided attention impaired Orientation: Alert, oriented, anxious Assessment and Plan - Patient Problems (1) Bipolar 1 disorder Current Visit: Yes Status: Acute RECOMMENDATIONS IV depacon and Geodon IM for first 24 hours. MEDICATIONS: Recommends restarting pt psych meds Risks, benefits and alternatives of medications discussed with the patient, questions answered and consent obtained from patient. PSYCHOTHERAPY: Supportive psychotherapy provided MEDICAL: Per primary team DELIRIUM PRECAUTIONS: Please re-orient patient frequently, keep lights on during the day, and minimize benzodiazepines and opiates as these medications could worsen patient's confusion. 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 Please contact with any questions and/or concerns. Mental Status Exam - Vital signs Last Vital Signs Temp 98.8 F 09/26/20 04:28 Pulse 94 H 09/26/20 08:30 Resp 18 09/26/20 08:30 BP 121/55 09/26/20 04:28 Pulse Ox 98 09/26/20 08:30 Assessment and Plan - Patient Problems (1) Bipolar 1 disorder Current Visit: Yes Status: Acute
[2020-09-26] MEDS: VALPROATE SODIUM 500 MG in SODIUM CHLORIDE 0.9% 100 ML IV SCH ×2 (12:00→22:20)
[2020-09-26] MEDS: ACETAMINOPHEN 325 MG TAB PO PRN (13:17)
--- NOTE | 2020-09-26 15:18 | Discharge Summary ---
Providers - Providers Date of Admission: 09/25/20 14:54 Date of discharge: 09/29/20 Attending physician: INOCENCIA MAGDALENO 09/25/20 00:06 Consult to Physician [CONS] Stat Comment: Consulting Provider: INÉS PIERCE Physician Instructions: Reason For Exam: COPD 09/25/20 00:27 Consult to Mental Health [CONS] Stat Reason For Exam: agitation 09/25/20 07:42 Consult to Physician [CONS] Routine Comment: Consulting Provider: GANESH VALENCIA Physician Instructions: Reason For Exam: bipolar Hospitalization Condition: Stable Hospital course: Patient is a 65-year-old female with past medical history of bipolar disorder COPD who is presenting from [facility] with hypoxia. Patient's O2 sat had gotten down to 70s with exertion. Patient does not have oxygen at baseline. Patient had COVID-19 approximately 4 months ago and has recovered. There is been no mention of any cough congestion fevers or chills. Patient was placed on oxygen on arrival and her oxygen level has improved. ED work-up WBC 5.7, hemoglobin 11.4, platelets 106, D-dimer 302, sodium 136, potassium 5.1, creatinine 0.7 calcium 9.1 lactic acid 1.0 serum glucose 200 chest x-ray done showed COPD without acute abnormality or significant change. Patient seen in ED at bedside. Patient is on oxygen at 2 L nasal cannula with O2 sats 98%. Patient is very agitated on four-point restraint for safety. As needed as needed Dave ordered. Psych consulted for mental health evaluation and psych medication management. I reviewed labs, medication record, and vital signs. Assessment and Plan - Patient Problems (1) COPD (chronic obstructive pulmonary disease) Current Visit: Yes Status: Acute Plan to address problem: Continue nebulizer treatments (2) Acute respiratory failure with hypoxia Current Visit: No Status: Acute Plan to address problem: Improved aeration and oxygenation on is dropping down. There is a baseline of 3 okay thank (3) Bipolar disorder Current Visit: Yes Status: Acute Plan to address problem: Agitation due to bipolar disorder Dave STUBBS PRN. Mental health department consulted for medication management and mental health evaluation. (4) Thrombocytopenia Current Visit: Yes Status: Acute Plan to address problem: monitor plt level (5) DVT prophylaxis Current Visit: No Status: Acute Plan to address problem: Subcutaneous Lovenox Disposition: [id number] ANOTHER TYPE HLTHCARE - Discharge Diagnoses (1) Bipolar disorder Status: Chronic Qualifiers: Active/Remission status: currently active (2) Acute respiratory failure with hypoxia Status: Acute (3) COPD exacerbation Status: Acute (4) DVT prophylaxis Status: Acute Exam - Constitutional Vitals: Temp Pulse Resp BP Pulse Ox 99.4 F 98 H 18 135/60 98 09/26/20 11:00 09/26/20 14:13 09/26/20 14:13 09/26/20 11:00 09/26/20 08:30 Plan Follow up with: VARINDER WHITE [Other] - 7 Days
[2020-09-26] MEDS ORDERED: IPRATROPIUM/ALBUTEROL SULFATE 3 ML AMPUL.NEB IH PRN (15:34)
--- NOTE | 2020-09-26 15:44 | Progress Note ---
Assessment and Plan - Patient Problems (1) Acute respiratory failure with hypoxia Current Visit: No Status: Acute Plan to address problem: Continue oxygen and nebulizer treatments and IV antibiotics and Solu-Medrol (2) COPD exacerbation Current Visit: No Status: Acute Plan to address problem: Continue IV Solu-Medrol IV antibiotics and duo nebs [id number] and as needed (3) Bipolar disorder Current Visit: Yes Status: Chronic Qualifiers: Active/Remission status: currently active Plan to address problem: Geodon 20 mg IM every 12 Psychiatry consult appreciated (4) Hyperkalemia Current Visit: Yes Status: Acute Plan to address problem: Hyperkalemia resolved (5) DVT prophylaxis Current Visit: No Status: Acute Plan to address problem: On Lovenox and GI prophylaxis Subjective Date of service: 09/26/20 Principal diagnosis: Patient agitated Interval history: Patient is a 65-year-old female with past medical history of bipolar disorder COPD who is presenting from [facility] with hypoxia. Patient's O2 sat had gotten down to 70s with exertion. Patient does not have oxygen at baseline. Patient had COVID-19 approximately 4 months ago and has recovered. There is been no mention of any cough congestion fevers or chills. Patient was placed on oxygen on arrival and her oxygen level has improved. ED work-up WBC 5.7, hemoglobin 11.4, platelets 106, D-dimer 302, sodium 136, potassium 5.1, creatinine 0.7 calcium 9.1 lactic acid 1.0 serum glucose 200 chest x-ray done showed COPD without acute abnormality or significant change. Patient seen in ED at bedside. Patient is on oxygen at 2 L nasal cannula with O2 sats 98%. Patient is very agitated on four-point restraint for safety. As needed as needed Geodon ordered. Psych consulted for mental health evaluation and psych medication management. I reviewed labs, medication record, and vital signs. Plan to use 09/26/2020 Patient agitated Wheezing better Objective - Constitutional Vitals: Vital Signs - 12hr 09/26/20 09/26/20 09/26/20 04:28 08:30 11:00 Temperature 98.8 F 99.4 F Pulse Rate 77 99 H Pulse Rate [ 94 H Anterior Bilateral Throughout] Respiratory 18 20 Rate Respiratory 18 Rate [Anterior Bilateral Throughout] Blood Pressure 121/55 Blood Pressure 135/60 [Left] O2 Sat by Pulse 94 98 Oximetry 09/26/20 14:13 Temperature Pulse Rate Pulse Rate [ 98 H Anterior Bilateral Throughout] Respiratory Rate Respiratory 18 Rate [Anterior Bilateral Throughout] Blood Pressure Blood Pressure [Left] O2 Sat by Pulse Oximetry General appearance: Present: mild distress, well-nourished - EENT Eyes: PERRL, EOM intact ENT: hearing intact, clear oral mucosa Ears: bilateral: normal - Neck Neck: supple, normal ROM - Respiratory Respiratory effort: normal Respiratory: bilateral: CTA - Breasts Breasts: normal - Cardiovascular Heart rate: 78 Rhythm: regular Heart Sounds: Present: S1 & S2. Absent: gallop, rub Extremities: pulses intact, No edema, normal color, Full ROM - Gastrointestinal General gastrointestinal: Present: soft, non-tender, non-distended, normal bowel sounds - Genitourinary Female genitourinary: normal - Integumentary Integumentary: clear, warm, dry - Musculoskeletal Musculoskeletal: 1, strength equal bilaterally - Neurologic Neurologic: moves all extremities - Psychiatric Psychiatric: memory intact, appropriate mood/affect, intact judgment & insight - Labs CBC & Chem 7: 09/27/20 09:33 09/27/20 09:33 Labs: Abnormal lab results 09/26/20 09/26/20 Range/Units 06:53 06:53 MCV 78 L (79-97) fl MCH 25 L (28-32) pg RDW 23.1 H (13.2-15.2) % Lymph % (Auto) 7.1 L (13.4-35.0) % [place] % (Auto) 15.5 H (0.0-7.3) % Lymph # (Auto) 0.7 L (1.2-5.4) K/mm3 [place] # (Auto) 1.6 H (0.0-0.8) K/mm3 Seg Neutrophils % 76.8 H (40.0-70.0) % Seg Neutrophils # 7.8 H (1.8-7.7) K/mm3 Chloride 96.6 L (98-107) mmol/L
[2020-09-26] MEDS ORDERED: ALBUTEROL 2.5 MG/3 ML NEBU IH PRN (15:48)
[2020-09-26] MEDS: methylPREDNISolone Sod Succinate 40 MG/1 ML INJ IV SCH (15:56)
[2020-09-26] MEDS: AZITHROMYCIN/NS 500 MG/250 ML 500 MG/250 ML BAG IV SCH (15:57)
[2020-09-26] MEDS: cefTRIAXone/NS 2 GM/100 ML 2 GM/100 ML BAG IV SCH (15:57)
[2020-09-26] MEDS: LORazepam 2 MG/ML VIAL IV PRN (15:57)
[2020-09-26] MEDS: ZIPRASIDONE MESYLATE 20 MG VIAL IM SCH ×2 (18:07→22:30)
[2020-09-26] MEDS: WATER FOR INJ Sterile (PF) 10 ML IM PRN (18:32)
[2020-09-26] MEDS: IPRATROPIUM/ALBUTEROL SULFATE 3 ML AMPUL.NEB IH SCH ×2 (18:56→21:16)
[2020-09-27] MEDS: methylPREDNISolone Sod Succinate 40 MG/1 ML INJ IV SCH ×3 (00:07→17:17)
[2020-09-27] MEDS: LORazepam 2 MG/ML VIAL IV PRN ×5 (00:11→23:38)
[2020-09-27] MEDS: IPRATROPIUM/ALBUTEROL SULFATE 3 ML AMPUL.NEB IH SCH ×4 (08:15→23:30)
[2020-09-27] MEDS: ZIPRASIDONE MESYLATE 20 MG VIAL IM SCH (09:08)
[2020-09-27] MEDS: ENOXAPARIN 40 MG/0.4 ML INJ SUB-Q SCH (09:18)
[2020-09-27 10:35] LABS: Basophils % (Auto) 0.4 % (0.0-1.8); Hematocrit 35.3 % (30.3-42.9); Hemoglobin 11.1 gm/dl (10.1-14.3); Lymphocytes # (Auto) 0.9 K/mm3 (1.2-5.4); Lymphocytes % (Auto) 10.6 % (13.4-35.0); Mean Corpuscular HGB Conc 31 % (30-34); Mean Corpuscular Volume 80 fl (79-97); Monocytes # (Auto) 1.2 K/mm3 (0.0-0.8); Monocytes % (Auto) 13.6 % (0.0-7.3); Platelet Count 165 K/mm3 (140-440); Red Blood Count 4.41 M/mm3 (3.65-5.03)
[2020-09-27 10:42] LABS: Red Cell Distribution Width 24.1 % (13.2-15.2)
[2020-09-27] MEDS: VALPROATE SODIUM 500 MG in SODIUM CHLORIDE 0.9% 100 ML IV SCH (11:43)
--- NOTE | 2020-09-27 11:52 | Progress Note ---
Subjective - Reason for Consult Consult date: 09/27/20 Reason for consult: MHE Requesting physician: MARIELY MCALLISTER - Chief Complaint Chief complaint: Psych Progress Patient seen in room, quiet today, resting and sleeping comfortably. Patient not bothered due to previous encounters of screaming and not sleeping. . REVIEW OF SYSTEMS Constitutional: Negative for weight loss ENT: Negative for stridor Respiratory: Negative for cough or hemoptysis All other systems reviewed and are negative MENTAL STATUS EXAMINATION General Appearance and Behavior: Age appropriate, poor hygiene, wearing appropriate clothes, lying in bed, sleeping Assessment and Plan - Patient Problems (1) Bipolar 1 disorder Current Visit: Yes Status: Acute RECOMMENDATIONS Patient started on AMbien. Will switch to Seroquel MEDICATIONS: Recommends restarting pt psych meds Risks, benefits and alternatives of medications discussed with the patient, questions answered and consent obtained from patient. PSYCHOTHERAPY: Supportive psychotherapy provided MEDICAL: Per primary team DELIRIUM PRECAUTIONS: Please re-orient patient frequently, keep lights on during the day, and minimize benzodiazepines and opiates as these medications could worsen patient's confusion. 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 Please contact with any questions and/or concerns. Mental Status Exam - Vital signs Last Vital Signs Temp 98.2 F 09/27/20 06:27 Pulse 77 09/27/20 06:27 Resp 20 09/27/20 06:27 BP 144/65 09/27/20 06:27 Pulse Ox 98 09/27/20 06:27 Assessment and Plan - Patient Problems (1) Bipolar 1 disorder Current Visit: Yes Status: Acute
[2020-09-27 12:14] LABS: Alanine Aminotransferase 32 units/L (7-56); Blood Urea Nitrogen 17 mg/dL (7-17); Calcium 9.2 mg/dL (8.4-10.2); Hemolysis Index 6
[2020-09-27 12:16] LABS: BUN/Creatinine Ratio 24
[2020-09-27] MEDS: cefTRIAXone/NS 2 GM/100 ML 2 GM/100 ML BAG IV SCH (17:16)
[2020-09-27] MEDS: AZITHROMYCIN/NS 500 MG/250 ML 500 MG/250 ML BAG IV SCH (17:17)
[2020-09-27] MEDS: QUEtiapine 100 MG TAB PO SCH (22:44)
[2020-09-27] MEDS: ZOLPIDEM 5 MG TAB PO SCH (22:44)
[2020-09-28] MEDS: methylPREDNISolone Sod Succinate 40 MG/1 ML INJ IV SCH ×2 (04:37→08:35)
[2020-09-28] MEDS: VALPROATE SODIUM 500 MG in SODIUM CHLORIDE 0.9% 100 ML IV SCH ×3 (04:38→21:31)
[2020-09-28] MEDS: ZIPRASIDONE MESYLATE 20 MG VIAL IM PRN ×2 (09:00→21:31)
[2020-09-28] MEDS ORDERED: WATER FOR INJ Sterile (PF) 10 ML IM PRN (09:00)
[2020-09-28] MEDS: LORazepam 2 MG/ML VIAL IM PRN ×2 (09:01→15:09)
[2020-09-28] MEDS: diphenhydrAMINE 50 MG/ML VIAL IM PRN ×2 (09:03→15:08)
[2020-09-28] MEDS: ENOXAPARIN 40 MG/0.4 ML INJ SUB-Q SCH (09:08)
[2020-09-28] MEDS: QUEtiapine 100 MG TAB PO SCH ×2 (09:09→21:31)
[2020-09-28] MEDS: IPRATROPIUM/ALBUTEROL SULFATE 3 ML AMPUL.NEB IH SCH ×3 (09:20→20:47)
--- NOTE | 2020-09-28 11:44 | Progress Note ---
Assessment and Plan - Patient Problems (1) Acute respiratory failure with hypoxia Current Visit: No Status: Acute Plan to address problem: Resolved (2) COPD exacerbation Current Visit: No Status: Acute Plan to address problem: Much improved Continue duo nebs as needed (3) Bipolar disorder Current Visit: Yes Status: Chronic Qualifiers: Active/Remission status: currently active Plan to address problem: Geodon 20 mg IM every 12 Psychiatry consult appreciated (4) Hyperkalemia Current Visit: Yes Status: Acute Plan to address problem: Hyperkalemia resolved (5) DVT prophylaxis Current Visit: No Status: Acute Plan to address problem: On Lovenox and GI prophylaxis Subjective Date of service: 09/28/20 Principal diagnosis: Patient less agitated Interval history: Patient is a 65-year-old female with past medical history of bipolar disorder COPD who is presenting from [facility] with hypoxia. Patient's O2 sat had gotten down to 70s with exertion. Patient does not have oxygen at baseline. Patient had COVID-19 approximately 4 months ago and has recovered. There is been no mention of any cough congestion fevers or chills. Patient was placed on oxygen on arrival and her oxygen level has improved. ED work-up WBC 5.7, hemoglobin 11.4, platelets 106, D-dimer 302, sodium 136, potassium 5.1, creatinine 0.7 calcium 9.1 lactic acid 1.0 serum glucose 200 chest x-ray done showed COPD without acute abnormality or significant change. Patient seen in ED at bedside. Patient is on oxygen at 2 L nasal cannula with O2 sats 98%. Patient is very agitated on four-point restraint for safety. As needed as needed Geodon ordered. Psych consulted for mental health evaluation and psych medication management. I reviewed labs, medication record, and vital signs. Plan to use 09/26/2020 Patient agitated Wheezing better 09/27/20 Patient slightly agitated Keeps shouting intermittently #Raynaud's much improved and on room air Objective - Constitutional Vitals: Vital Signs - 12hr 09/27/20 09/28/20 09/28/20 23:37 05:53 09:20 Temperature 98.6 F 98 F Pulse Rate 64 68 Pulse Rate [ 99 H Anterior Bilateral Throughout] Respiratory 20 18 Rate Respiratory 28 H Rate [Anterior Bilateral Throughout] Blood Pressure 142/72 121/68 [Left] O2 Sat by Pulse 99 95 Oximetry General appearance: Present: no acute distress, well-nourished - EENT Eyes: PERRL, EOM intact ENT: hearing intact, clear oral mucosa Ears: bilateral: normal - Neck Neck: supple, normal ROM - Respiratory Respiratory effort: normal Respiratory: bilateral: CTA - Breasts Breasts: normal - Cardiovascular Heart rate: 78 Rhythm: regular Heart Sounds: Present: S1 & S2. Absent: gallop, rub Extremities: pulses intact, No edema, normal color, Full ROM - Gastrointestinal General gastrointestinal: Present: soft, non-tender, non-distended, normal bowel sounds - Genitourinary Female genitourinary: normal - Integumentary Integumentary: clear, warm, dry - Musculoskeletal Musculoskeletal: 1, strength equal bilaterally - Neurologic Neurologic: CNII-XII intact, moves all extremities - Psychiatric Psychiatric: appropriate mood/affect, intact judgment & insight, memory intact, other (Agitated, confused) - Allied health notes Allied health notes reviewed: nursing, case management - Labs CBC & Chem 7: 09/27/20 09:33 09/27/20 09:33 Labs: Abnormal lab results 09/27/20 Range/Units 09:33 Sodium 146 H (137-145) mmol/L Glucose 105 H (65-100) mg/dL AST 97 H (5-40) units/L
--- NOTE | 2020-09-28 13:53 | Progress Note ---
Assessment and Plan Patient awake, confused, and anxious. Supposed to be on 3L of O2, but patient is not using her O2. O2 saturation is 88%. Counseled to keep the oxygen on at all times. Patient is emaciated. Patient afebrile, with no leukocytosis. Chest X-ray performed on 09/24/20. Chest x-ray shows COPD without acute abnormality or significant change. Medications include ceftriaxone, azithromycin, albuterol/ipratroprium, solumedrol, lovanox s/c, simethacone. - Patient Problems (1) Acute respiratory failure with hypoxia Current Visit: No Status: Acute Plan to address problem: O2 on 3L NC. Patient non-compliant with oxygen therapy. Continue ceftriaxone, azithromycin, albuterol/ipratroprium, solumedrol, lovanox s/c. (2) COPD exacerbation Current Visit: No Status: Acute Plan to address problem: O2 on 3L NC. Patient non-compliant with oxygen therapy. Continue ceftriaxone, azithromycin, albuterol/ipratroprium, solumedrol, lovanox s/c. (3) Bipolar 1 disorder Current Visit: Yes Status: Acute Plan to address problem: Management per Psychiatry. Subjective Date of service: 09/28/20 Principal diagnosis: Patient agitated Interval history: Patient awake, confused, and anxious. Supposed to be on 3L of O2, but patient is not using her O2. O2 saturation is 88%. Counseled to keep the oxygen on at all times. Patient is emaciated. Patient afebrile, with no leukocytosis. Chest X-ray performed on 09/24/20. Chest x-ray shows COPD without acute abnormality or significant change. Medications include ceftriaxone, azithromycin, albuterol/ipratroprium, solumedro l, lovanox s/c, simethacone. Objective Vital Signs - 12hr 09/28/20 09/28/20 05:53 09:20 Temperature 98 F Pulse Rate 68 Pulse Rate [ 99 H Anterior Bilateral Throughout] Respiratory 18 Rate Respiratory 28 H Rate [Anterior Bilateral Throughout] Blood Pressure 121/68 [Left] O2 Sat by Pulse 99 95 Oximetry Constitutional: alert, agitated, appears uncomfortable, other (anxious) Eyes: non-icteric ENT: oropharynx moist Neck: supple Effort: normal Ascultation: Bilateral: diminished breath sounds, other (prolonged expiratory phase) Percussion: Bilateral: not dull Cardiovascular: regular rate and rhythm Gastrointestinal: normoactive bowel sounds, non-distended Integumentary: normal Extremities: no cyanosis Neurologic: normal mental status, non-focal exam Psychiatric: anxious CBC and BMP: 09/27/20 09:33 09/27/20 09:33 ABG, PT/INR, D-dimer: PT/INR, D-dimer D-Dimer 302.78 ng/mlDDU (0-234) H 09/24/20 22:24 Abnormal lab findings: Abnormal Labs 09/24/20 09/24/20 09/24/20 22:24 22:24 22:24 MCV MCH 24 L RDW 23.3 H Plt Count 108 L Lymph % (Auto) [place] % (Auto) Lymph # (Auto) [place] # (Auto) Seg Neutrophils % Monocytes % (Manual) 15.0 H Seg Neutrophils # Lymphocytes # (Manual) 1.0 L Monocytes # (Manual) 0.9 H D-Dimer 302.78 H Sodium 136 L Potassium 5.1 H Chloride 93.6 L Carbon Dioxide 35 H Glucose AST 09/26/20 09/26/20 09/27/20 06:53 06:53 09:33 MCV 78 L MCH 25 L 25 L RDW 23.1 H 24.1 H Plt Count Lymph % (Auto) 7.1 L 10.6 L [place] % (Auto) 15.5 H 13.6 H Lymph # (Auto) 0.7 L 0.9 L [place] # (Auto) 1.6 H 1.2 H Seg Neutrophils % 76.8 H 75.4 H Monocytes % (Manual) Seg Neutrophils # 7.8 H Lymphocytes # (Manual) Monocytes # (Manual) D-Dimer Sodium Potassium Chloride 96.6 L Carbon Dioxide Glucose AST 09/27/20 09:33 MCV MCH RDW Plt Count Lymph % (Auto) [place] % (Auto) Lymph # (Auto) [place] # (Auto) Seg Neutrophils % Monocytes % (Manual) Seg Neutrophils # Lymphocytes # (Manual) Monocytes # (Manual) D-Dimer Sodium 146 H Potassium Chloride Carbon Dioxide Glucose 105 H AST 97 H Chest x-ray: report reviewed, image reviewed Additional Studies: 09/24/20 FINDINGS: SUPPORT DEVICES: None. HEART / MEDIASTINUM: The heart size and pulmonary vasculature are normal. LUNGS / PLEURA: The lungs are mildly hyperinflated with minimal chronic interstitial lung disease, unchanged. No new pulmonary or pleural abnormality. No pneumothorax. ADDITIONAL FINDINGS: No significant additional findings. IMPRESSION: COPD without acute abnormality or significant change.
[2020-09-28] MEDS: cefTRIAXone/NS 2 GM/100 ML 2 GM/100 ML BAG IV SCH (15:04)
[2020-09-28] MEDS: AZITHROMYCIN/NS 500 MG/250 ML 500 MG/250 ML BAG IV SCH (15:06)
[2020-09-28] MEDS: ZOLPIDEM 5 MG TAB PO SCH (21:31)
[2020-09-29] MEDS: methylPREDNISolone Sod Succinate 40 MG/1 ML INJ IV SCH ×4 (01:35→17:33)
[2020-09-29] MEDS: LORazepam 2 MG/ML VIAL IM PRN ×3 (03:19→18:13)
[2020-09-29] MEDS: diphenhydrAMINE 50 MG/ML VIAL IM PRN (03:20)
--- NOTE | 2020-09-29 06:07 | Progress Note ---
Assessment and Plan - Patient Problems (1) Acute respiratory failure with hypoxia Current Visit: No Status: Acute Plan to address problem: Resolved (2) COPD exacerbation Current Visit: No Status: Acute Plan to address problem: Much improved Continue duo nebs as needed (3) Bipolar disorder Current Visit: Yes Status: Chronic Qualifiers: Active/Remission status: currently active Plan to address problem: Geodon 20 mg IM every 12 Psychiatry consult appreciated (4) Hyperkalemia Current Visit: Yes Status: Acute Plan to address problem: Hyperkalemia resolved (5) DVT prophylaxis Current Visit: No Status: Acute Plan to address problem: On Lovenox and GI prophylaxis (6) Discharge planning issues Current Visit: Yes Status: Acute Plan to address problem: Patient needs in-house psychiatric placement Discussed with Dr. Magana from [facility] psych for potential admission to first floor [facility] for further management No acute medical issues involved Medically stable for transfer/discharge Talked with the personal senior care and withdrawn 1 to take her back because of her psych history Called and agreed to accept and will refused will call them tomorrow again-the ankle and there is a 9 Subjective Date of service: 09/28/20 Principal diagnosis: Patient less agitated Interval history: Patient is a 65-year-old female with past medical history of bipolar disorder COPD who is presenting from [facility] with hypoxia. Patient's O2 sat had gotten down to 70s with exertion. Patient does not have oxygen at baseline. Patient had COVID-19 approximately 4 months ago and has recovered. There is been no mention of any cough congestion fevers or chills. Patient was placed on oxygen on arrival and her oxygen level has improved. ED work-up WBC 5.7, hemoglobin 11.4, platelets 106, D-dimer 302, sodium 136, potassium 5.1, creatinine 0.7 calcium 9.1 lactic acid 1.0 serum glucose 200 chest x-ray done showed COPD without acute abnormality or significant change. Patient seen in ED at bedside. Patient is on oxygen at 2 L nasal cannula with O2 sats 98%. Patient is very agitated on four-point restraint for safety. As needed as needed Geodon ordered. Psych consulted for mental health evaluation and psych medication management. I reviewed labs, medication record, and vital signs. Plan to use 09/26/2020 Patient agitated Wheezing better 09/27/20 Patient slightly agitated Keeps shouting intermittently #Raynaud's much improved and on room air 09/28/2020 No shortness of breath or wheezing Intermittently agitated In restraints Patient is transferred to psych facility Patient is medically cleared for transfer Objective - Constitutional Vitals: Vital Signs - 12hr 09/28/20 09/28/20 09/28/20 18:29 20:00 23:03 Temperature 98.4 F 97.9 F Pulse Rate 99 H 93 H Respiratory 20 20 20 Rate Blood Pressure 144/69 138/70 O2 Sat by Pulse 91 92 Oximetry General appearance: Present: no acute distress, well-nourished - EENT Eyes: PERRL, EOM intact ENT: hearing intact, clear oral mucosa Ears: bilateral: normal - Neck Neck: supple, normal ROM - Respiratory Respiratory effort: normal Respiratory: bilateral: CTA - Breasts Breasts: normal - Cardiovascular Heart rate: 78 Rhythm: regular Heart Sounds: Present: S1 & S2. Absent: gallop, rub Extremities: pulses intact, No edema, normal color, Full ROM - Gastrointestinal General gastrointestinal: Present: soft, non-tender, non-distended, normal bowel sounds - Genitourinary Female genitourinary: normal - Integumentary Integumentary: clear, warm, dry - Musculoskeletal Musculoskeletal: 1, strength equal bilaterally - Neurologic Neurologic: moves all extremities - Psychiatric Psychiatric: agitated, other (Patient is alert but not oriented to self, psychotic) - Labs CBC & Chem 7: 09/27/20 09:33 09/27/20 09:33
[2020-09-29 06:55] LABS: BUN/Creatinine Ratio 22; Blood Urea Nitrogen 20 mg/dL (7-17); Calcium 9.2 mg/dL (8.4-10.2); Hemolysis Index 1
--- NOTE | 2020-09-29 08:34 | Progress Note ---
Subjective - Reason for Consult Consult date: 09/29/20 Reason for consult: MHE Requesting physician: UMER PICKENS - Chief Complaint Chief complaint: Psych Nurse: Patient refuses to wear oxygen. Current O2 is 93% RA. Patient has had to be redirected numerous times through out this shift. Patient yelling and screaming at staff. pulse palpable is bilateral upper and lower extremities. Patient refuses for IV access. fluids and snacks given to patient Psych Progress Patient in room in bed, not yelling or screaming today but asking me for help that she doesnt know whats going on, patient unable to comprehend question and provide answers. Appears to be cleaned up today. REVIEW OF SYSTEMS Constitutional: Negative for weight loss ENT: Negative for stridor Respiratory: Negative for cough or hemoptysis All other systems reviewed and are negative MENTAL STATUS EXAMINATION General Appearance and Behavior: Age appropriate, poor hygiene, wearing appro priate clothes, lying in bed Cooperation: Participating/engaged Psychomotor Behavior: Psychomotor normal Mood: not good Affect and affective range: dysthymic Thought Process:loose associations Thought Content: obsessions, delusional Speech: pressured Intellectual Functioning: Average Suicidal Ideation:n/a Homicidal Ideation: Denies HI Impulse Control: Impaired Insight and Judgment: Limited insight and judgment Memory: impaired memory Attention: Distractible, and Divided attention impaired Orientation: Alert Assessment and Plan - Patient Problems (1) Bipolar 1 disorder Current Visit: Yes Status: Acute RECOMMENDATIONS Patient started on AMbien. Will switch to Seroquel MEDICATIONS: Recommends restarting pt psych meds Risks, benefits and alternatives of medications discussed with the patient, questions answered and consent obtained from patient. PSYCHOTHERAPY: Supportive psychotherapy provided MEDICAL: Per primary team DELIRIUM PRECAUTIONS: Please re-orient patient frequently, keep lights on during the day, and minimize benzodiazepines and opiates as these medications could worsen patient's confusion. FLOUR DISTRIBUTOR: as recommended DISPOSITION: Per primary team; recommending inpatient management, will continue to follow for med management LEGAL STATUS: Voluntary FOLLOW-UP: Will follow Thank you for the consult. Please contact with any questions and/or concerns. Mental Status Exam - Vital signs Last Vital Signs Temp 97.9 F 09/29/20 05:22 Pulse 85 09/29/20 05:22 Resp 18 09/29/20 05:22 BP 110/54 09/29/20 05:22 Pulse Ox 85 09/29/20 05:22 Assessment and Plan - Patient Problems (1) Bipolar 1 disorder Current Visit: Yes Status: Acute
[2020-09-29] MEDS: ZIPRASIDONE MESYLATE 20 MG VIAL IM PRN (08:42)
[2020-09-29] MEDS ORDERED: QUEtiapine 100 MG TAB PO SCH (10:00)
[2020-09-29] MEDS ORDERED: QUEtiapine 200 MG TAB PO SCH (10:00)
--- NOTE | 2020-09-29 10:59 | Progress Note ---
Assessment and Plan Patient awake, confused, and anxious. Supposed to be on 3L of O2, but patient is not using her O2. O2 saturation is 88%. Counseled to keep the oxygen on at all times. Patient is emaciated. Patient afebrile, with no leukocytosis. Chest X-ray performed on 09/24/20. Chest x-ray shows COPD without acute abnormality or significant change. Medications include ceftriaxone, azithromycin, albuterol/ipratroprium, solumedrol, lovanox s/c, simethacone. - Patient Problems (1) Acute respiratory failure with hypoxia Current Visit: No Status: Acute Plan to address problem: O2 on 3L NC. Patient non-compliant with oxygen therapy. Continue ceftriaxone, azithromycin, albuterol/ipratroprium, solumedrol, lovanox s/c. (2) COPD exacerbation Current Visit: No Status: Acute Plan to address problem: O2 on 3L NC. Patient non-compliant with oxygen therapy. Continue ceftriaxone, azithromycin, albuterol/ipratroprium, solumedrol, lovanox s/c. (3) Bipolar 1 disorder Current Visit: Yes Status: Acute Plan to address problem: Management per Psychiatry. Subjective Date of service: 09/29/20 Principal diagnosis: Patient less agitated Interval history: Patient awake, confused, and anxious. Supposed to be on 3L of O2, but patient is not using her O2. O2 saturation is 88%. Counseled to keep the oxygen on at all times. Patient is emaciated. Patient afebrile, with no leukocytosis. Chest X-ray performed on 09/24/20. Chest x-ray shows COPD without acute abnormality or significant change. Medications include ceftriaxone, azithromycin, albuterol/ipratroprium, marquis umedrol, lovanox s/c, simethacone. Objective Vital Signs - 12hr 09/28/20 09/29/20 23:03 05:22 Temperature 97.9 F 97.9 F Pulse Rate 93 H 85 Respiratory 20 18 Rate Blood Pressure 138/70 110/54 O2 Sat by Pulse 92 85 Oximetry Constitutional: alert, agitated, appears uncomfortable, other (anxious) Eyes: non-icteric ENT: oropharynx moist Neck: supple Effort: normal Ascultation: Bilateral: diminished breath sounds, other (prolonged expiratory phase) Percussion: Bilateral: not dull Cardiovascular: regular rate and rhythm Gastrointestinal: normoactive bowel sounds, non-distended Integumentary: normal Extremities: no cyanosis Neurologic: normal mental status, non-focal exam Psychiatric: anxious CBC and BMP: 09/27/20 09:33 09/29/20 06:21 ABG, PT/INR, D-dimer: PT/INR, D-dimer D-Dimer 302.78 ng/mlDDU (0-234) H 09/24/20 22:24 Abnormal lab findings: Abnormal Labs 09/24/20 09/24/20 09/24/20 22:24 22:24 22:24 MCV MCH 24 L RDW 23.3 H Plt Count 108 L Lymph % (Auto) M[place]racken % (Auto) Lymph # (Auto) [place] # (Auto) Seg Neutrophils % Monocytes % (Manual) 15.0 H Seg Neutrophils # Lymphocytes # (Manual) 1.0 L Monocytes # (Manual) 0.9 H D-Dimer 302.78 H Sodium 136 L Potassium 5.1 H Chloride 93.6 L Carbon Dioxide 35 H BUN Glucose AST 09/26/20 09/26/20 09/27/20 06:53 06:53 09:33 MCV 78 L MCH 25 L 25 L RDW 23.1 H 24.1 H Plt Count Lymph % (Auto) 7.1 L 10.6 L [place]rack[place] % (Auto) 15.5 H 13.6 H Lymph # (Auto) 0.7 L 0.9 L [place] # (Auto) 1.6 H 1.2 H Seg Neutrophils % 76.8 H 75.4 H Monocytes % (Manual) Seg Neutrophils # 7.8 H Lymphocytes # (Manual) Monocytes # (Manual) D-Dimer Sodium Potassium Chloride 96.6 L Carbon Dioxide BUN Glucose AST 09/27/20 09/29/20 09:33 06:21 MCV MCH RDW Plt Count Lymph % (Auto) [place]rack[place] % (Auto) Lymph # (Auto) [place] # (Auto) Seg Neutrophils % Monocytes % (Manual) Seg Neutrophils # Lymphocytes # (Manual) Monocytes # (Manual) D-Dimer Sodium 146 H 146 H Potassium Chloride Carbon Dioxide BUN 20 H Glucose 105 H 110 H AST 97 H
[2020-09-29] MEDS: IPRATROPIUM/ALBUTEROL SULFATE 3 ML AMPUL.NEB IH SCH ×2 (11:34→14:26)
--- NOTE | 2020-09-29 12:49 | Electrocardiograph Report ---
[facility] Test Date: 2020-09-26 Test Time: 13:27:03 Pat Name: LADONNA CRAMER Department: Room: A353 1 Gender: F Materials Scheduler: DEL : 1955 Requested By: GANESH VALENCIA Order Number: [id number] Reading MD: Fernando Hawley Measurements Intervals [place] Rate: 98 P: 88 FL: 110 QRS: 64 QRSD: 64 T: 86 QT: 430 QTc: 549 Interpretive Statements Sinus rhythm Prolonged QT interval No previous ECG available for comparison Electronically Signed On 09-29-2020 12:48:46 EDT by Fernando Hawley
[2020-09-29] MEDS: ENOXAPARIN 40 MG/0.4 ML INJ SUB-Q SCH (15:02)
[2020-09-29] MEDS: VALPROATE SODIUM 500 MG in SODIUM CHLORIDE 0.9% 100 ML IV SCH (15:02)
[2020-09-29] MEDS: cefTRIAXone/NS 2 GM/100 ML 2 GM/100 ML BAG IV SCH (17:32)
[2020-09-29] MEDS: AZITHROMYCIN/NS 500 MG/250 ML 500 MG/250 ML BAG IV SCH (17:33)
[2020-09-29 18:50] VITALS: BP 130/99
== END 2020-09-29 18:47 | DRG 189 ==
LOC: ED 18:26 → 3A 23:59 → OBSVTOIN 09-25 14:54
PROVIDERS: ADMIT Internal Medicine Geriatric Medicine; ATTEND Internal Medicine
PROC: 4A033R1 Measurement of Arterial Saturation, Peripheral, Percutaneous Approach (ICD-10-PCS; principal; 2020-09-29)
DX: J96.01 Acute respiratory failure with hypoxia (principal); J44.1 Chronic obstructive pulmonary disease with (acute) exacerbation; Z20.822 Contact with and (suspected) exposure to COVID-19; F31.9 Bipolar disorder, unspecified; D69.6 Thrombocytopenia, unspecified; F41.9 Anxiety disorder, unspecified; G30.9 Alzheimer's disease, unspecified; F02.80 Dementia in other diseases classified elsewhere, unspecified severity, without behavioral disturbance, psychotic disturbance, mood disturbance, and anxiety; E87.5 Hyperkalemia; M85.80 Other specified disorders of bone density and structure, unspecified site; F17.200 Nicotine dependence, unspecified, uncomplicated; Z88.0 Allergy status to penicillin; Z79.899 Other long term (current) drug therapy; Z79.891 Long term (current) use of opiate analgesic; Z88.2 Allergy status to sulfonamides; Z90.3 Acquired absence of stomach [part of]; Z90.710 Acquired absence of both cervix and uterus; Z98.891 History of uterine scar from previous surgery
CPT/HCPCS: 36415; 71045; 80048; 80053; 82140; 82728; 82805; 82962; 83615; 84132; 84145; 85007; 85025; 85379; 86140; 87040; 93005; 94640; G0378; J0456; J0696; J1200; J1630; J1650; J2060; J2920; J3486; J7030; U0003